=== PATIENT | female | born 2000 | race Caucasian/White ===

== ENCOUNTER 2023-11-12 06:56 | Inpatient (IN) | payer OTHER ==
[~2023-11-12] VITALS: Ht 160 cm; Wt 85.0 kg
[2023-11-12] VITALS (17 sets, daily range): BP systolic 99–1113; BP diastolic 59–81; PULSE 72–116; TEMP 97.4–98
[2023-11-12] MEDS ORDERED: LR 1,000 ML IV SCH (07:00)
--- NOTE | 2023-11-12 07:05 | NUR ---
537004.1 G1L0 arrives on unit for scheduled primary sectino for breech presentation. Ambulatory to 222 with spouse. Urine collected for UDS. Pt reports normal movement, denies any LOF, VB, or ctx.
[2023-11-12] MEDS ORDERED: CLEOCIN HCL300 MG PO (07:43)
[2023-11-12] MEDS ORDERED: PRENATAL TABLET PO (07:43)
[2023-11-12] MEDS ORDERED: TUMS500 MG (07:44)
[2023-11-12] MEDS ORDERED: Measles/Mumps/Rubella Virus Vaccine Live w Diluent 0.5 ML VIAL SQ SCH (07:45)
[2023-11-12] MEDS ORDERED: oxyCODONE 5 MG TAB PO PRN (07:45)
[2023-11-12] MEDS ORDERED: Loratadine 10 MG TAB PO PRN (07:45)
[2023-11-12] MEDS ORDERED: Acetaminophen 500 MG TAB PO PRN (07:45)
[2023-11-12] MEDS ORDERED: Ondansetron 4 MG/2 ML VIAL IV PRN (07:45)
[2023-11-12] MEDS ORDERED: Naloxone 0.4 MG/ML VIAL IV PRN (07:45)
[2023-11-12] MEDS ORDERED: Magnes Hydrox (MOM) 80 MG/ML 30 ML CUP PO PRN (07:45)
[2023-11-12] MEDS ORDERED: LR 1,000 ML IV PRN (07:45)
[2023-11-12 07:47] LABS: BASO % 0.3 % (0.0-2.0); EOS # 0.1 K/mm3 (0.0-0.7); EOS % 1.1 % (0.0-4.0); GRAN # 4.9 K/mm3 (1.4-6.5); GRAN % 67.6 % (42.2-75.2); HEMOGLOBIN 13.3 g/dl (12.5-16.0); LYMPH # 1.4 K/mm3 (1.2-3.4); LYMPH % 19.8 % (20.0-51.0); MEAN CELL VOLUME 95 fl (80.0-100.0); MEAN CORPUSCULAR HEMOGLOBIN 33 pg (27-31); MEAN CORPUSCULAR HGB CONC 35 g/dl (33.0-37.0); MEAN PLATELET VOLUME 9.9 fl (7.4-10.4); MONO # 0.8 K/mm3 (0.1-0.6); MONO % 10.5 % (1.7-9.3); PLATELET COUNT 222 K/mm3 (130-400); RED BLOOD COUNT 4.01 M/mm3 (4.10-5.30); REDCELL DISTRIBUTION WIDTH-CV 12.5 % (11.5-14.5)
[2023-11-12] MEDS ORDERED: Sennosides/Docusate 8.6-50 MG TAB PO SCH (08:00)
[2023-11-12 08:02] LABS: TRICYCLIC ANTIDEPRESS URINE NEGATIVE (NEGATIVE)
[2023-11-12] MEDS ORDERED: Ketorolac 60 MG/2 ML VIAL IM ONE (08:49)
[2023-11-12] MEDS ORDERED: Phenylephrine 10 MG/ML VIAL ONE (08:49)
[2023-11-12] MEDS ORDERED: NS 20 ML IV ONE (08:50)
[2023-11-12] MEDS ORDERED: dexAMETHasone 10 MG/ML VIAL ONE (08:50)
[2023-11-12] MEDS ORDERED: Ondansetron 4 MG/2 ML VIAL ONE (08:50)
[2023-11-12] MEDS ORDERED: Oxytocin 10 UNITS/ML VIAL ONE (08:50)
[2023-11-12] MEDS ORDERED: MOTRIN 800800 MG/TAB PO (08:56)
[2023-11-12] MEDS ORDERED: PERCOCET 325 MG1 TA2 PO (08:56)
[2023-11-12] MEDS ORDERED: LR 1,000 ML IV ONE (09:02)
[2023-11-12] MEDS ORDERED: Meperidine 50 MG/ML 1 ML VIAL ONE (09:08)
[2023-11-12] MEDS ORDERED: Ibuprofen 800 MG TAB PO SCH (13:37)
[2023-11-12] MEDS ORDERED: Clindamycin 150 MG CAP PO SCH (17:45)
[2023-11-12] MEDS ORDERED: traZODone 50 MG TAB PO PRN (21:00)
[2023-11-13 08:30] VITALS: BP 122/76; PULSE 84; TEMP 98
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
[2023-11-13 17:00] VITALS: BP 115/73; PULSE 91
[2023-11-13 18:35] VITALS: BP 106/76; PULSE 94; TEMP 98.2
--- NOTE | 2023-11-13 18:35 | NUR ---
AFTER REPORT RECEIVED FROM NURSE, ASSESSED PT. PT DENIES PAIN AT THIS TIME. REPORTS VAGINAL BLEEDING MINIMAL. STATES SHE IS VERY TIRED AND IS GOING TO TRY TO SLEEP. DISCUSSED FEEDING DIFFICULTIES TODAY AND SOME OPTIONS FOR TONIGHT. PT IS AGREEABLE.
[2023-11-14 07:41] VITALS: BP 114/69; PULSE 92; TEMP 98
[2023-11-14 16:20] VITALS: BP 113/67; PULSE 86; TEMP 97.6
[2023-11-14 19:00] VITALS: BP 115/63; PULSE 82; TEMP 97.8
[2023-11-15 07:15] VITALS: BP 118/80; PULSE 90; TEMP 98
--- NOTE | 2023-11-15 09:53 | NUR ---
DISCHARGE EDUCATION COMPLETED, HEALTH HISTORY GIVEN, FOLLOW UP APPOINTMENTS DISCUSSED. QUESTIONS INVITED AND ANSWERED.
== END 2023-11-15 09:55 | disposition home or self-care (01) | DRG 540 ==
LOC: OB 06:56
PROVIDERS: ADMIT Obstetrics & Gynecology
PROC: 10D00Z1 Extraction of Products of Conception, Low, Open Approach (ICD-10-PCS; principal; 2023-11-12)
DX: O32.1XX0 Maternal care for breech presentation, not applicable or unspecified (principal); Z3A.39 39 weeks gestation of pregnancy; Z37.0 Single live birth
CPT/HCPCS: J0690; J1100; J1885; J2175; J2371; J2405; J2590; J7120